=== PATIENT | female | born 1940 ===

== ENCOUNTER 2018-07-06 10:37 | Outpatient (CLI) | payer OTHER ==
[~2018-07-06] VITALS: Ht 152.4 cm; Wt 78.9 kg
== END 2018-07-06 11:00 | disposition home or self-care (01) ==
LOC: OFIC 805 10:37
DX: H61.23 Impacted cerumen, bilateral (principal); H93.13 Tinnitus, bilateral; H90.3 Sensorineural hearing loss, bilateral; G44.89 Other headache syndrome; J31.2 Chronic pharyngitis; K21.9 Gastro-esophageal reflux disease without esophagitis

== ENCOUNTER 2018-11-16 11:09 | Outpatient (CLI) | payer OTHER ==
[~2018-11-16] VITALS: Ht 152.4 cm; Wt 78.9 kg
== END 2018-11-16 12:56 | disposition home or self-care (01) ==
LOC: OFIC 805 11:09
DX: J31.2 Chronic pharyngitis (principal); G44.89 Other headache syndrome; H90.3 Sensorineural hearing loss, bilateral; H93.13 Tinnitus, bilateral; K21.9 Gastro-esophageal reflux disease without esophagitis; R43.2 Parageusia; R43.0 Anosmia; J31.0 Chronic rhinitis